=== PATIENT | female | born 1975 | race Caucasian/White ===

== ENCOUNTER 2018-11-16 13:10 | Outpatient (REF) | payer MEDICARE, MEDICAID, SELFPAY ==
[2018-11-17 12:34] LABS: HCT 42.7 % (36.0-46.0); HGB 14.1 g/dL (12.0-15.5); Mean Corpuscular Volume 90.9 fL (80-95); Mean Platelet Volume 13.6 fL (8.0-11.0); Platelet Count 150 x1000/uL (130-400); RBC Distribution Width 11.9 % (11.7-14.6); White Blood Cell Count 4.34 k/cumm (4.4-10.8)
[2018-11-17 13:02] LABS: ALT 24 U/L (12-78); AST 28 U/L (15-37); Alkaline Phosphatase 102 U/L (46-116); Anion Gap 8.2 mmol/L (3-11); BUN 25 mg/dL (7-18); Bilirubin, Total 0.8 mg/dL (0.2-1.0); CO2 30.8 mmol/L (21.0-32.0); CREATININE 0.82 mg/dL (0.55-1.02); Calcium 9.4 mg/dL (8.5-10.1); Chloride 103 mmol/L (98-107); Glucose 78 mg/dL (70-100); Sodium 142 mmol/L (136-145); TSH (W/Ref FT4) 1.54 uIU/mL (0.358-3.74); Total Protein 7.4 g/dL (6.4-8.2)
[2018-11-20 10:29] LABS: IgA 180 mg/dL (85-499); Interpretation SEE COMMENTS; Tissue Transglutaminase IgA <1.2 U/mL (<4.0)
== END 2018-11-16 13:30 ==
LOC: NCHCN 13:10
PROVIDERS: PCP Family Medicine; Visit Provider Family Medicine
DX: R10.31 Right lower quadrant pain (principal); R63.4 Abnormal weight loss
CPT/HCPCS: 80053; 82784; 83516; 85027; 84443

== ENCOUNTER → 2019-01-05 09:09 | Outpatient (BNVA) | payer MEDICARE, MEDICAID, SELFPAY | PROVIDERS: PCP Family Medicine; Referring Provider Family Medicine; Visit Provider Nurse Practitioner Adult Health | DX: G43.009 Migraine without aura, not intractable, without status migrainosus (principal) | CPT/HCPCS: 99204; 99215 ==

== ENCOUNTER 2020-06-01 12:19 | Outpatient (REF) | payer MEDICARE, MEDICAID, SELFPAY ==
[2020-06-01 16:25] LABS: Vitamin D 25 Total 19.9 ng/ml (30-100)
== END 2020-06-01 12:39 ==
LOC: NCHCN 12:19
PROVIDERS: PCP Family Medicine; Visit Provider Family Medicine
DX: E55.9 Vitamin D deficiency, unspecified (principal)
CPT/HCPCS: 82306

== ENCOUNTER 2021-12-10 18:58 | Outpatient (REF) | payer MEDICARE, MEDICAID, SELFPAY ==
[2021-12-10 16:28] LABS: Calculated LDL 125 mg/dL (<100); Cholesterol 189 mg/dL (<200); HDL Cholesterol 54 mg/dL (40-60); Magnesium 1.9 mg/dL (1.8-2.4); Triglyceride 51 mg/dL (<150)
[2021-12-10 16:42] LABS: Vitamin D 25 Total 18.2 ng/mL (30-100)
[2021-12-11 09:51] LABS: HIV-1/2 Ag & Ab Screen Negative (Negative)
[2021-12-11 10:15] LABS: Hepatitis C Ab w Rflx HCV PCR Negative (Negative)
== END 2021-12-10 18:59 | disposition home or self-care (01) ==
LOC: NCHCN 18:58
PROVIDERS: PCP Family Medicine; Visit Provider Family Medicine
DX: M81.0 Age-related osteoporosis without current pathological fracture (principal); E55.9 Vitamin D deficiency, unspecified; Z00.00 Encounter for general adult medical examination without abnormal findings; Z11.4 Encounter for screening for human immunodeficiency virus [HIV]; Z11.59 Encounter for screening for other viral diseases; Z13.220 Encounter for screening for lipoid disorders
CPT/HCPCS: 80061; 82306; 86803; 87389; 83735

== ENCOUNTER → 2022-02-11 08:44 | Outpatient (BNVA) | payer MEDICARE, MEDICAID, SELFPAY | PROVIDERS: PCP Family Medicine; Referring Provider Family Medicine; Visit Provider Nurse Practitioner Adult Health | DX: G43.901 Migraine, unspecified, not intractable, with status migrainosus (principal); G43.701 Chronic migraine without aura, not intractable, with status migrainosus | CPT/HCPCS: 99204; J1885; J2550; 96372 ==

== ENCOUNTER → 2022-02-18 14:59 | Outpatient (BNVA) | payer MEDICARE, MEDICAID, SELFPAY | PROVIDERS: PCP Family Medicine; Referring Provider Family Medicine; Visit Provider Nurse Practitioner Adult Health | DX: G43.701 Chronic migraine without aura, not intractable, with status migrainosus (principal) | CPT/HCPCS: 99211 ==

== ENCOUNTER → 2022-05-15 09:17 | Outpatient (BNVA) | payer MEDICARE, MEDICAID, SELFPAY | PROVIDERS: PCP Family Medicine; Referring Provider Family Medicine; Visit Provider Nurse Practitioner Adult Health | DX: G43.911 Migraine, unspecified, intractable, with status migrainosus (principal); R63.6 Underweight; F32.A Depression, unspecified | CPT/HCPCS: 99213; 99214 ==

== ENCOUNTER 2022-06-12 16:24 | Outpatient (REF) | payer MEDICARE, MEDICAID, SELFPAY ==
[2022-06-13 04:52] LABS: Vitamin D 25 Total 33.8 ng/mL (30-100)
== END 2022-06-12 16:25 | disposition home or self-care (01) ==
LOC: NCHCN 16:24
PROVIDERS: PCP Family Medicine; Visit Provider Family Medicine
DX: E55.9 Vitamin D deficiency, unspecified (principal)
CPT/HCPCS: 82306

== ENCOUNTER → 2022-08-28 08:48 | Outpatient (BNVA) | payer MEDICARE, MEDICAID, SELFPAY | PROVIDERS: PCP Family Medicine; Referring Provider Family Medicine; Visit Provider Nurse Practitioner Adult Health | DX: R51.9 Headache, unspecified (principal); G89.29 Other chronic pain; F41.9 Anxiety disorder, unspecified; G47.00 Insomnia, unspecified; Z87.820 Personal history of traumatic brain injury | CPT/HCPCS: 64405; 99213; 99214 ==

== ENCOUNTER 2023-06-18 09:33 | Outpatient (REF) | payer MEDICARE, MEDICAID, SELFPAY ==
--- OUTSIDE RECORDS SUMMARY | 2023-06-18 09:36 | XMS_ITS | Continuity of Care Document ---
Author Name Unknown Organization [facility] Address [address] [place] [address] Care Team Providers Care Line Assembler Name Role Phone KiloGibson [email or web address] [place] Primary Care Physician [facility] - 08/10/22 [facility] [address] [place] [address] Encounter Diagnosis Cough(Discharge Diagnosis) - 08/10/22 Discharge Disposition: Home or Self Care Attending Physician: Neel Stafford MD Admitting Physician: Neel Stafford MD Allergies, Adverse Reactions, Alerts Substance Reaction Severity Status codeine Vomiting Unknown Active morphine Urticaria Unknown Active Functional Status 08/10/22 Family Member Travel History No recent t ravel Recent Travel History No recent travel Other exposure to Infectious Disease Non e Immunizations Given and Recorded Vaccine Date Status Refusal Reason SARS-CoV-2 (COVID-19) mRNA-1273 vaccine 03/21/21 R ecorded SARS-CoV-2 (COVID-19) mRNA-1273 vaccine 02/21/21 R ecorded influenza virus vaccine, inactivated 11/03/00 Josh rded varicella virus vaccine 11/03/00 Recorded Medications benzonatate 100 mg oral capsule 100 mg = 1 cap, Oral, every 8 hr, PRN as needed for cough, 1 or 2 every 8 hours as needed for bothersome cough, # 30 cap, 1 Refill(s), Pharmacy: [facility] #[id number], 162, cm, 07/16/22 7:48:00 EDT, Height/Length Dosing, 45.36, kg, 07/16/22 7:48:00 EDT... Start Date: 07/16/22 Status: Ordered predniSONE 10 mg oral tablet 20 mg = 2 tab, Oral, Daily, # 10 tab, 0 Refill(s), Pharmacy: [facility] #[id number], 162, cm, 07/16/22 7:48:00 EDT, Height/Length Dosing, 45.36, kg, 07/16/22 7:48:00 EDT, Weight Dosing Start Date: 07/16/22 Status: Ordered Vitamin D3 Daily Start Date: 07/04/22 Status: Ordered Problem List Condition Confirmation Course Effective Dates Status Health St atus Informant Abdominal pain Confirmed 09/24/19 Active Anorexia nervosa Confirmed 09/24/19 Active Chest pain Confirmed 09/24/19 Active Cyst of Bartholin's gland duct Confirmed Active Depressive disorder Confirmed 09/24/19 Active Familial bicuspid aortic valve Confirmed 09/24/19 Active History of calculus of kidney Confirmed 09/24/19 Active Leukopenia Confirmed 09/24/19 Active Menopause Confirmed 09/24/19 Active Migraine Confirmed 09/24/19 Active Osteopenia Confirmed 09/24/19 Active Pain in right hip joint Confirmed Active Sciatica Confirmed 09/24/19 Active Vitamin D deficiency Confirmed 09/24/19 Active Weight loss Confirmed 09/24/19 Active Procedures Procedure Date Related Diagnosis Body Site Status Colonoscopy 05/16/21 Completed Gallbladder surgery 11/02/16 Compl eted EGD (esophagogastroduodenosc opy) gastric outlet reduction 1 06/25/16 Compl eted Tonsillectomy 11/02/03 Completed Hysterectomy 2 11/02/99 Completed Tubal ligation 11/02/96 Completed Carpal tunnel surgery 11/02/95 Com pleted Appendectomy 11/02/88 Completed 1epigastric pain; 2015 bowel reflux 2with BSO Vital Signs Most recent to oldest [Reference Range]: 1 Temperature Temporal Artery [36-38 Deg C ] 36.8 Deg C (08/10/22 5:27 AM) Peripheral Pulse Rate [60-100 bpm] 96 bp m (08/10/22 5:27 AM) Respiratory Rate [12-24 br/min] 16 br/mi n (08/10/22 5:27 AM) Blood Pressure [90-140/60-90 mmHg] 98/60 mmHg (08/10/22 5:27 AM) Weight Dosing 45.00 kg (08/10/22 5:42 AM) Weight Estimated 45.00 kg (08/10/22 5:27 AM) Height/Length Dosing 163.000 cm (08/10/22 5:42 AM) Height/Length Estimated 163.000 cm (08/10/22 5:27 AM) Social History Social History Type Response Tobacco Never tobacco user T obacco Use:. Sex Female Patient Care team information Personnel Name: Heather Boateng Address: Address: [facility] [address] [place] [address] [place] [address]- [place]
--- OUTSIDE RECORDS SUMMARY | 2023-06-18 09:36 | XMS_ITS | Continuity of Care Document ---
Author Name Unknown Organization [facility] Address [address] [place] [address] Care Team Providers Care Pressure Vessel Inspector Name Role Phone Kilo Heather Mesa Primary Care Physician [facility] Date(s[facility] 09/12/22 - 09/12/22 [facility] [address] [place] [address] Encounter Diagnosis Atypical chest pain(Discharge Diagnosis) - 09/12/22 Other chest pain(Final) - Discharge Disposition: Home or Self Care Attending Physician: Sheree Mcconnell MD Admitting Physician: Sheree Mcconnell MD Allergies, Adverse Reactions, Alerts Substance Reaction Severity Status codeine Vomiting Unknown Active morphine Urticaria Unknown Active Functional Status 09/12/22 Family Member Travel History No recent t [...] cough, # 30 cap, 1 Refill(s), Pharmacy: [facility], 162, cm, 07/16/22 7:48:00 EDT, Height/Length Dosing, 45.36, kg, 07/16/22 7:48:00 EDT... Start Date: 07/16/22 Status: Ordered Pepcid 20 mg oral tablet 20 mg = 1 tab, Oral, BID, # 60 tab, 11 Refill(s), Pharmacy: [facility], 164, cm, 09/12/2221:23:00 EST, Height/Length Dosing, 47.17, kg, 09/12/22 21:23:00 EST, Weight Dosing Start Date: 09/12/22 Status: Ordered predniSONE 10 mg oral tablet 20 mg = 2 tab, Oral, Daily, # 10 tab, 0 Refill(s), Pharmacy: [facility], 162, cm, 07/16/22 7:48:00 EDT, Height/Length [...] Com pleted Appendectomy 11/02/88 Completed 1epigastric pain; 2014 bowel reflux 2with BSO Results Laboratory List Name Date .Manual Differential (NCTY) 09/12/22 CBC w/ Diff 09/12/22 Comprehensive Metabolic Panel 09/12/22 Lipase Level 09/12/22 Troponin-I 09/12/22 Most recent to oldest [Reference Range]: 1 WBC [5.0-10.0 x10^3/mcL] 6.7 x10^3/mcL (09/12/22 9:53 PM) RBC [4.1-5.3 x10^6/mcL] 4.2 x10^6/mcL (09/12/22 9:53 PM) Segs Man [40-75 %] 49 % (09/12/22 9:53 PM) Lymph Man [20-50 %] 30 % (09/12/22 9:53 PM) [place] Man 8 % *NA* (09/12/22 9:53 PM) Eos Man 12 % *NA* (09/12/22 9:53 PM) BUN [7-18 mg/dL] 17 mg/dL (09/12/22 9:53 PM) Glucose Level [74-106 mg/dL] 105 mg/dL (09/12/22 9:53 PM) Potassium Level [3.5-5.1 mmol/L] 3.7 mmo l/L (09/12/22 9:53 PM) MCV [80.0-96.0] 91.0 (09/12/22 9:53 PM) RBC Morph Normal (09/12/22 9:53 PM) AST [15-37 unit/L] 36 unit/L (09/12/22 9:53 PM) ALT [14-59 unit/L] 33 unit/L (09/12/22 9:53 PM) MCHC [31.0-35.0 g/dL] 33.5 g/dL (09/12/22 9:53 PM) Troponin-I [0.0-51.4 pg/mL] 5.3 pg/mL (09/12/22 9:53 PM) Sodium Level [136-145 mmol/L] 141 mmol/L (09/12/22 9:53 PM) Hct [37.0-47.0 %] 38.2 % (09/12/22 9:53 PM) Lipase Level [16-77 unit/L] 29 unit/L (09/12/22 9:53 PM) Calcium Level [8.5-10.1 mg/dL] 8.7 mg/dL (09/12/22 9:53 PM) Albumin Level [3.4-5.0 g/dL] 3.6 g/dL (09/12/22:53 PM) Protein Total [6.4-8.2 g/dL] 7.4 g/dL (09/12/22 9:53 PM) MCH [26.0-32.0 pg] 30.5 pg (09/12/2253 PM) Bilirubin Total [0.2-1.0 mg/dL] 0.3 mg/d L (09/12/22:53 PM) Hgb [12.0-16.0 g/dL] 12.8 g/dL (09/12/22:53 PM) Alk Phos [46-146 unit/L] 118 unit/L (09/12/22:53 PM) Band Man [0-5 %] 0 % (09/12/22:53 PM) Platelets [130-450 x10^3/mcL] 163 x10^3/ mcL (09/12/22 9:53 PM) CO2 [21-32 mmol/L] 32 mmol/L (09/12/22 9:53 PM) eGFR Non-AA [>=60] 99 (09/12/22:53 PM) eGFR AA [>=60] 99 (09/12/22:53 PM) Chloride Level [98-107 mmol/L] 103 mmol/ L (09/12/22 9:53 PM) RDW-CV [11.7-17.0 %] 12.3 % (09/12/22:53 PM) Creatinine Level [0.55-1.02 mg/dL] 0.74 mg/dL (09/12/22:53 PM) Baso Man [0-1 %] 1 % (09/12/22:53 PM) Vital Signs Most recent to oldest [Reference Range]: 1 2 3 Temperature Temporal Artery [36-38 Deg C] 36.6 Deg C (09/12/22 9:14 PM) Peripheral Pulse Rate [60-100 bpm] 84 bpm (09/12/22 11:38 PM) 72 bpm (09/12/22 11:28 PM) 71 bpm (09/12/22 11:02 PM) Heart Rate Monitored [60-100 bpm] 72 bpm (09/12/22 11:28 PM) 71 bpm (09/12/22 11:02 PM) 81 bpm (09/12/22:42 PM) Respiratory Rate [12-24 br/min] 20 br/min (09/12/22 11:28 PM) 16 br/min (09/12/22 11:02 PM) 20 br/min (09/12/22:42 PM) Blood Pressure [90-140/60-90 mmHg] 130/62mmHg (09/12/22 11:38 PM) 117/63mmHg (09/12/22 11:28 PM) 117/55mmHg (09/12/22 11:02 PM) Weight Dosing 47.17 kg (09/12/22 9:23 PM) Weight Estimated 47.17 kg (09/12/22 9:14 PM) Height/Length Dosing 164.000 cm (09/12/22 9:23 PM) Height/Length Estimated 164.000 cm (09/12/22 9:14 PM) Social History Social History Type Response Tobacco Never tobacco user T obacco Use:. Sex Female Hospital Discharge Instructions Patient Education 09/12/2022 22:28:39 Nonspecific Chest Pain, Adult Nonspecific Chest Pain, Adult Chest pain is an uncomfortable, tight, or painful feeling in the chest. The pain can feel like a crushing, aching, or squeezing pressure. A person can feel a burning or tingling sensation. Chest paincan also be felt in your back, neck, jaw, shoulder, or arm. This pain can be worse when you move, sneeze, or take a deep breath. Chest pain can be caused by a condition that is life-threatening. This must be treated right away. It can also be caused by something that is not life- threatening. If you have chest pain, it can be hard to know the difference, so it is important to get help right away to make sure that you do not have a serious condition. Some life-threatening causes of chest pain include: ??? Heart attack. ??? A tear in the body's main blood vessel (aortic dissection). ??? Inflammation around your heart (pericarditis). ??? A problem in the lungs, such as a blood clot (pulmonary embolism) or a collapsed lung (pneumothorax). Some non life-threatening causes of chest pain include: ??? Heartburn. ??? Anxiety or stress. ??? Damage to the bones, muscles, and cartilage that make up your chest wall. ??? Pneumonia or bronchitis. ??? Shingles infection (varicella-zoster virus). Your chest pain may come and go. It may also be constant. Your health care provider will do tests and other studies to find the cause of your pain. Treatment will depend on the cause of your chest pain. Follow these instructions at home: Medicines ??? Take [id number] and prescription medicines only as told by your health care provider. ??? If you were prescribed an antibiotic medicine, take it as told by your health care provider. Donot stop taking the antibiotic even if you start to feel better. Activity ??? Avoid any activities that cause chest pain. ??? Do not lift anything that is heavier than 10 lb (4.5 kg), or the limit that you are told, untilyour health care provider says that it is safe. ??? Rest as directed by your health care provider. ??? Return to your normal activities only as told by your health care provider. Ask your health care provider what activities are safe for you. Lifestyle ??? Do not use any products that contain nicotine or tobacco, such as cigarettes, e-cigarettes, andchewing tobacco. If you need help quitting, ask your health care provider. ??? Do not drink alcohol. ??? Make healthy lifestyle changes as recommended. These may include: ??? Getting regular exercise. Ask your health care provider to suggest some exercises that are safefor you. ??? Eating a heart-healthy diet. This includes plenty of fresh fruits and vegetables, whole grains,low-fat (lean) protein, and low-fat dairy products. A dietitian can help you find healthy eating options. ??? Maintaining a healthy weight. ??? Managing any other health conditions you may have, such as high blood pressure (hypertension) or diabetes. ??? Reducing stress, such as with yoga or relaxation techniques. General instructions ??? Pay attention to any changes in your symptoms. ??? It is up to you to get the results of any tests that were done. Ask your health care provider, or the department that is doing the tests, when your results will be ready. ??? Keep all follow-up visits as told by your health care provider. This is important. ??? You may be asked to go for further testing if your chest pain does not go away. Contact a health care provider if: ??? Your chest pain does not go away. ??? You feel depressed. ??? You have a fever. ??? You notice changes in your symptoms or develop new symptoms. Get help right away if: ??? Your chest pain gets worse. ??? You have a cough that gets worse, or you cough up blood. ??? You have severe pain in your abdomen. ??? You faint. ??? You have sudden, unexplained chest discomfort. ??? You have sudden, unexplained discomfort in your arms, back, neck, or jaw. ??? You have shortness of breath at any time. ??? You suddenly start to sweat, or your skin gets clammy. ??? You feel nausea or you vomit. ??? You suddenly feel lightheaded or dizzy. ??? You have severe weakness, or unexplained weakness or fatigue. ??? Your heart begins to beat quickly, or it feels like it is skipping beats. These symptoms may represent a serious problem that is an emergency. Do not wait to see if the symptoms will go away. Get medical help right away. Call your local emergency services (911 in the [place] Do not drive yourself to the hospital. Summary ??? Chest pain can be caused by a condition that is serious and requires urgent treatment. It may also be caused by something that is not life-threatening. ??? Your health care provider may do lab tests and other studies to find the cause of your pain. ??? Follow your health care provider's instructions on taking medicines, making lifestyle changes, and getting emergency treatment if symptoms become worse. ??? Keep all follow-up visits as told by your health care provider. This includes visits for any further testing if your chest pain does not go away. This information is not intended to replace advice given to you by your health care provider. Make sure you discuss any questions you have with your health care provider. Document Revised: 01/03/2022 Document Reviewed: 01/03/2022 Elsevier Patient Education ?? 2022 [employer]. Follow Up Care 09/12/2022 21:14:02 With:Follow up with primary care provider Address: When:1 to 2 weeks Physician Emergency department Note * Sheree Mcconnell MD: PERFORM Event Display: ED Note Physician Authored Date: [id number] GLENN BURGESS :1975 Age:47 years Sex:Female Visit Date:09/12/2022 Primary Care Physician: Heather Boateng Basic Information Time Seen: Sheree Mcconnell MD / 09/12/2022 21:37 Chief Complaint chest pain - cental chest pain described as tight beginning suddenly while at rest. Had COVID 1 month ago. Reports abnormal echo 2 years ago with decreased EF. History Of Present Illness: Patient reports chest pain??abdominal pain epigastric starting around 7 PM??tonight she states she has had multiple episodes of this in the past??but tonight feels more severe. ??Patient reports 5 out of 10 currently??here in the emergency department. ??Patient declines any medications currently.??Patient's stated he tried??Pepcid??prior to arrival without significant relief.?? Patient??reports radiation to right arm??right back of neck however she is not sure if the right back of neck??is from??nerve block/migraine??issues??positive back discomfort??positive nausea??no diarrhea no extremity edema no skin rashes.?? Positive family history of??cardiac disease.?? Patient feels like??her Pepcid helped on the way here Review of Systems: see hpi for ros Physical Exam Vitals & Measurements T:??36.6?C ??(Temporal Artery)?? HR:??84??(Peripheral)?? RR:??20?? BP:??130/62?? SpO2:??99%?? HT:??164.000??cm?? WT:??47.17??kg??(Estimated)?? O2 Therapy:??Room air?? General: Alert and oriented, well nourished,?No??acute distress Eye: PER?Normal??conjunctiva,??No??scleral icterus HENT: Normocephalic,??nontraumatic??Normal hearing Lungs: Clear to auscultation,?Non-labored?? respiration Heart:?Normal?? rate,?Regular??rhythm,?No??murmur,?No??gallop,?No??edema Chest: wall excursion wnl no abnormal movements no obvious deformities Abdomen: Soft, moderate tenderness??epigastric, non-distended,?No??masses Musculoskeletal:?Normal?? range of motion and strength,?No??tenderness,?No??swelling Skin: Skin is warm, dry and pink,?No??rashes,?No??lesions Neurologic: Awake, alert and oriented X4 Psychiatric: Cooperative, appropriate mood and affect Medical Decision Making: For MDM please see under assessment and plan Procedure No Qualifying Data Assessment/Plan 1.??Atypical chest pain??R07.89 Patient declines a second??troponin??she does realize her risks and benefits??patient's is involved with the discussion,??patient is adamant about going home??a prescription for Pepcid 20 mg twice a day is sent to the pharmacy.?? Patient is aware if it anytime she worsens she is to return to the emergency department??or see primary care provider.?? I think likely??patient's chest pain is??gastric related??and hopefully the Pepcid 20 mg twice a day will be helpful for patient??however??patient reports that she has been on medications??previously in the past not sure that this may be helpful.?? Patient to follow-up with her primary care provider. Ordered: Pepcid 20 mg oral tablet, 20 mg = 1 tab, Oral, BID, # 60 tab, 11 Refill(s), Pharmacy: [facility], 164, cm, 09/12/22 21:23:00 EST, Height/Length Dosing, 47.17, kg, 09/12/22 21:23:00 EST, Weight Dosing Discharge Patient, 09/12/22 23:25:00 EST, Home Independently, Constant Indicator ?? Patient Education Nonspecific Chest Pain, Adult Follow Up With When Contact Information Follow up with primary care provider Within 1 to 2 weeks Additional Instructions: Medication Reconciliation New Prescription famotidine (Pepcid 20 mg oral tablet)1 tab Oral (given by mouth) 2 times a day. Refills: 11. ?? Unchanged benzonatate (benzonatate 100 mg oral capsule)1 Capsules Oral (given by mouth) every 8 hours as needed as needed for cough. 1 or 2 every 8 hours as needed for bothersome cough. Refills: 1. ?? cholecalciferol (Vitamin D3)every day. ?? predniSONE (predniSONE 10 mg oral tablet)2 tab Oral (given by mouth) every day. Refills: 0. Problem List/Past Medical History Ongoing Abdominal pain Anorexia nervosa Chest pain Cyst of Bartholin's gland duct Depressive disorder Familial bicuspid aortic valve History of calculus of kidney Leukopenia Menopause Migraine Osteopenia Pain in right hip joint Sciatica Vitamin D deficiency Weight loss Historical No qualifying data Procedure/Surgical History ???Colonoscopy (05/17/2021)???Gallbladder surgery (11/03/2016)???EGD (esophagogastroduodenoscopy) gastric outlet reduction (06/26/2016)???Tonsillectomy (11/03/2003)???Hysterectomy (11/03/1999)???Tubal ligation (11/03/1996)???Carpal tunnel surgery (11/03/1995)???Appendectomy (11/03/1988) Medication Administration Given !-Maalox Advanced Regular Strength oral suspension, 30 mL, Oral Allergies codeine??(Vomiting) morphine??(Urticaria) Social History Alcohol Never Electronic Cigarette/Vaping Electronic Cigarette Use: Never. Tobacco Never tobacco user Tobacco Use:. Family History Carcinoma of prostate: Father. Heart disease: Father. Hypertensive disorder: Mother and Father. Polyp of colon: Father. Lab Results CBC and Differential?? LATEST RESULTS?? HISTORICAL RESULTS?? WBC?? 09/12/22 21:53?? 6.7?? 07/16/22?? 5.0?? RBC?? 09/12/22 21:53?? 4.2?? 07/16/22?? 4.4?? Hgb?? 09/12/22 21:53?? 12.8?? 07/16/22?? 13.5?? Hct?? 09/12/22 21:53?? 38.2?? 07/16/22?? 39.6?? MCV?? 09/12/22 21:53?? 91.0?? 07/16/22?? 90.4?? MCH?? 09/12/22 21:53?? 30.5?? 07/16/22?? 30.8?? MCHC?? 09/12/22 21:53?? 33.5?? 07/16/22?? 34.1?? RDW-CV?? 09/12/22 21:53?? 12.3?? 07/16/22?? 11.4 ??Low?? Platelets?? 09/12/22 21:53?? 163?? 07/16/22?? 175?? Segs Man?? 09/12/22 21:53?? 49?? 07/16/22?? 56?? Lymph Man?? 09/12/22 21:53?? 30?? 07/16/22?? 28?? [place] Man?? 09/12/22 21:53?? 8?? 07/16/22?? 3?? Eos Man?? 09/12/22 21:53?? 12?? 07/16/22?? 6?? Baso Man?? 09/12/22 21:53?? 1?? 07/16/22?? 1?? Band Man?? 09/12/22 21:53?? 0?? 07/16/22?? 3?? RBC Morph?? 09/12/22 21:53?? Normal?? 07/16/22?? Normal? Routine Chemistry?? LATEST RESULTS?? HISTORICAL RESULTS?? Sodium Level?? 09/12/22 21:53?? 141?? 07/16/22?? 138?? Potassium Level?? 09/12/22 21:53?? 3.7?? 07/16/22?? 4.3?? Chloride Level?? 09/12/22 21:53?? 103?? 07/16/22?? 102?? CO2?? 09/12/22 21:53?? 32?? 07/16/22?? 30?? Alk Phos?? 09/12/22 21:53?? 118?? 07/16/22?? 99?? AST?? 09/12/22 21:53?? 36?? 07/16/22?? 22?? ALT?? 09/12/22 21:53?? 33?? 07/16/22?? 25?? BUN?? 09/12/22 21:53?? 17?? 07/16/22?? 23 ??High?? Glucose Level?? 09/12/22 21:53?? 105?? 07/16/22?? 91?? Creatinine Level?? 09/12/22 21:53?? 0.74?? 07/16/22?? 0.79?? eGFR AA?? 09/12/22 21:53?? 99?? 07/16/22?? 92?? eGFR Non-AA?? 09/12/22 21:53?? 99?? 07/16/22?? 92?? Calcium Level?? 09/12/22 21:53?? 8.7?? 07/16/22?? 8.9?? Protein Total?? 09/12/22 21:53?? 7.4?? 07/16/22?? 7.4?? Albumin Level?? 09/12/22 21:53?? 3.6?? 07/16/22?? 3.5?? Bilirubin Total?? 09/12/22 21:53?? 0.3?? 07/16/22?? 0.5?? Lipase Level?? 09/12/22 21:53?? 29? Cardiac Isoenzymes?? LATEST RESULTS?? Troponin-I?? 09/12/22 21:53?? 5.3? Electronically Signed on 09/13/22 12:43 AM [place], Sheree MD Emergency department Discharge instructions * Sheree Mcconnell MD: PERFORM Event Display: ED Discharge Information Authored Date: [id number] GLENN BURGESS :1975 Age:47 years Sex:Female Visit Date:09/12/2022 Primary Care Physician: Heather Boateng Discharge Instructions We would like to thank you for allowing us to assist you with your healthcare needs. The following includes patient education materials and information regarding your injury/illness. Diagnosis from Today's Visit Atypical chest pain Discharge Vitals Temperature??(Temporal Artery) 97.9 ??F (36.6 ??C) Heart Rate??(Peripheral) 72 Heart Rate??(Monitored) 72 Respiratory Rate?? 20 Blood Pressure?? 117/63?? Height?? 64.57 in (164.000 cm) Weight??(Estimated) 104.01 lb (47.17 kg) Allergies codeine??(Vomiting) morphine??(Urticaria) What to Do Next Instructions from Your Care Team If you worsen return to the emergency department or see your primary care provider. You Need to Schedule the Following Appointments Follow Up with??Follow up with primary care provider When:??Within 1 to 2 weeks You were treated today on an emergency basis; it may be samuels to contact your primary care provider to notify them of your visit today. You may have been referred to your regular doctor or a specialist, please follow up as instructed. If your condition worsens or you can't get in to see the doctor, contact the Emergency Department. Medications What How Much When Why Instructions Next Dose New famotidine (Pepcid 20 mg oral tablet) 1 tab Oral (given by mouth) 2 times a day Atypical chest pain Refills: 11 Pickup at [facility] Unchanged benzonatate (benzonatate 100 mg oral capsule) 1 Capsules Oral (given by mouth) Every 8 hours as needed for as needed for cough 1 or 2 every 8 hours as needed for bothersome cough ?? Unchanged cholecalciferol (Vitamin D3) Every day Unchanged predniSONE (predniSONE 10 mg oral tablet) 2 tab Oral (given by mouth) Every day Pharmacy Information [facility]: [address], [place] [phone] [phone] Education Materials Nonspecific Chest Pain, Adult Chest pain is an uncomfortable, tight, or painful feeling in the chest. The pain can feel like a crushing, aching, or squeezing pressure. A person can feel a burning or tingling sensation. Chest paincan also be felt in your back, neck, jaw, shoulder, or arm. This pain can be worse when you move, sneeze, or take a deep breath. Chest pain can be caused by a condition that is life-threatening. This must be treated right away. It can also be caused by something that is not life- threatening. If you have chest pain, it can be hard to know the difference, so it is important to get help right away to make sure that you do not have a serious condition. Some life-threatening causes of chest pain include: ? Heart attack. ? A tear in the body's main blood vessel (aortic dissection). ? Inflammation around your heart (pericarditis). ? A problem in the lungs, such as a blood clot (pulmonary embolism) or a collapsed lung (pneumothorax). Some non life-threatening causes of chest pain include: ? Heartburn. ? Anxiety or stress. ? Damage to the bones, muscles, and cartilage that make up your chest wall. ? Pneumonia or bronchitis. ? Shingles infection (varicella-zoster virus). Your chest pain may come and go. It may also be constant. Your health care provider will do tests and other studies to find the cause of your pain. Treatment will depend on the cause of your chest pain. Follow these instructions at home: Medicines ? Take [id number] and prescription medicines only as told by your health care provider. ? If you were prescribed an antibiotic medicine, take it as told by your health care provider. Do notstop taking the antibiotic even if you start to feel better. Activity ? Avoid any activities that cause chest pain. ? Do not lift anything that is heavier than 10 lb (4.5 kg), or the limit that you are told, until your health care provider says that it is safe. ? Rest as directed by your health care provider. ? Return to your normal activities only as told by your health care provider. Ask your health care provider what activities are safe for you. Lifestyle ? Do not use any products that contain nicotine or tobacco, such as cigarettes, e- cigarettes, and chewing tobacco. If you need help quitting, ask your health care provider. ? Do not drink alcohol. ? Make healthy lifestyle changes as recommended. These may include: ? Getting regular exercise. Ask your health care provider to suggest some exercises that are safe foryou. ? Eating a heart-healthy diet. This includes plenty of fresh fruits and vegetables, whole grains, low-fat (lean) protein, and low-fat dairy products. A dietitian can help you find healthy eating options. ? Maintaining a healthy weight. ? Managing any other health conditions you may have, such as high blood pressure (hypertension) or diabetes. ? Reducing stress, such as with yoga or relaxation techniques. General instructions ? Pay attention to any changes in your symptoms. ? It is up to you to get the results of any tests that were done. Ask your health care provider, or the department that is doing the tests, when your results will be ready. ? Keep all follow-up visits as told by your health care provider. This is important. ? You may be asked to go for further testing if your chest pain does not go away. Contact a health care provider if: ? Your chest pain does not go away. ? You feel depressed. ? You have a fever. ? You notice changes in your symptoms or develop new symptoms. Get help right away if: ? Your chest pain gets worse. ? You have a cough that gets worse, or you cough up blood. ? You have severe pain in your abdomen. ? You faint. ? You have sudden, unexplained chest discomfort. ? You have sudden, unexplained discomfort in your arms, back, neck, or jaw. ? You have shortness of breath at any time. ? You suddenly start to sweat, or your skin gets clammy. ? You feel nausea or you vomit. ? You suddenly feel lightheaded or dizzy. ? You have severe weakness, or unexplained weakness or fatigue. ? Your heart begins to beat quickly, or it feels like it is skipping beats. These symptoms may represent a serious problem that is an emergency. Do not wait to see if the symptoms will go away. Get medical help right away. Call your local emergency services (911 in the [place] Do not drive yourself to the hospital. Summary ? Chest pain can be caused by a condition that is serious and requires urgent treatment. It may also be caused by something that is not life-threatening. ? Your health care provider may do lab tests and other studies to find the cause of your pain. ? Follow your health care provider's instructions on taking medicines, making lifestyle changes, and getting emergency treatment if symptoms become worse. ? Keep all follow-up visits as told by your health care provider. This includes visits for any further testing if your chest pain does not go away. This information is not intended to replace advice given to you by your health care provider. Make sure you discuss any questions you have with your health care provider. Document Revised: 01/03/2022 Document Reviewed: 01/03/2022 [employer] Patient Education ?? 2021 [employer] Tests Performed Medications and Immunizations Administered Given !-Maalox Advanced Regular Strength oral suspension, 30 mL, Oral Lab Test Name Test Result Date/Time WBC 6.7 x10^3/mcL 09/12/2022 21:53 EST RBC 4.2 x10^6/mcL 09/12/2022 21:53 EST Hgb 12.8 g/dL 09/12/2022 21:53 EST Hct 38.2 % 09/12/2022 21:53 EST MCV 91.0 09/12/2022 21:53 EST MCH 30.5 pg 09/12/2022 21:53 EST MCHC 33.5 g/dL 09/12/2022 21:53 EST RDW-CV 12.3 % 09/12/2022 21:53 EST Platelets 163 x10^3/mcL 09/12/2022 21:53 EST Segs Man 49 % 09/12/2022 21:53 EST Lymph Man 30 % 09/12/2022 21:53 EST [place] Man 8 % 09/12/2022 21:53 EST Eos Man 12 % 09/12/2022 21:53 EST Baso Man 1 % 09/12/2022 21:53 EST Band Man 0 % 09/12/2022 21:53 EST RBC Morph Normal 09/12/2022 21:53 EST Sodium Level 141 mmol/L 09/12/2022 21:53 EST Potassium Level 3.7 mmol/L 09/12/2022 21:53 EST Chloride Level 103 mmol/L 09/12/2022 21:53 EST CO2 32 mmol/L 09/12/2022 21:53 EST Alk Phos 118 unit/L 09/12/2022 21:53 EST AST 36 unit/L 09/12/2022 21:53 EST ALT 33 unit/L 09/12/2022 21:53 EST BUN 17 mg/dL 09/12/2022 21:53 EST Glucose Level 105 mg/dL 09/12/2022 21:53 EST Creatinine Level 0.74 mg/dL 09/12/2022 21:53 EST eGFR AA 99 09/12/2022 21:53 EST eGFR Non-AA 99 09/12/2022 21:53 EST Calcium Level 8.7 mg/dL 09/12/2022 21:53 EST Protein Total 7.4 g/dL 09/12/2022 21:53 EST Albumin Level 3.6 g/dL 09/12/2022 21:53 EST Bilirubin Total 0.3 mg/dL 09/12/2022 21:53 EST Lipase Level 29 unit/L 09/12/2022 21:53 EST Troponin-I 5.3 pg/mL 09/12/2022 21:53 EST Patient/Beamster Signature Patient Name:GLENN BURGESS I have received this information and my questions have been answered. Patient/Beamster Name: Patient/Beamster Signature: Relationship to Patient: Witness Name/Signature: Date: Electronically Signed on: 09/12/2022 23:30 ESTSigned by: Emergency department Note * Halina Reyes: PERFORM Event Display: ED Notes Authored Date: [id number] Patient Care team information Care Team Personnel Name: Heather Boateng Position: No Access Member Role: Primary Care Physician Address: Address: [address] [id number] Name: Gemma Tavares RN Position: Nurse Member Role: ED Nurse Name: Sheree Mcconnell MD Position: Physician Member Role: Attending Physician Address: Address: [address] [place] [id number] Care Team Related Persons Name: SHAQ BURGESS Address: Home Name: OKSANA BURGESS Address: Home
[2023-06-18 15:48] LABS: HCT 40.6 % (36.0-46.0); HGB 13.6 g/dL (11.2-15.7); MCH 29.7 pg (27.0-33.0); MCHC 33.5 % (32.0-36.0); MCV 89 fL (80-95); RBC 4.58 10^6/uL (3.93-5.22); RDW 11.6 % (11.7-14.6); RDW-SD 37.5 fL; WBC 3.34 10^3/uL (4.4-10.8)
[2023-06-18 16:41] LABS: ALT 22 U/L (14-59); AST 26 U/L (15-37); Albumin 4.2 g/dL (3.4-5.0); Alkaline Phosphatase 95 U/L (46-116); BUN 29 mg/dL (7-18); CREATININE 0.7 mg/dL (0.55-1.02); Chloride 104 mmol/L (98-107); Estimated GFR 105.95 (mL/min/1.73m2); Glucose 77 mg/dL (74-106); Potassium 4.1 mmol/L (3.5-5.1); Sodium 142 mmol/L (136-145); Total Protein 7.5 g/dL (6.4-8.2)
[2023-06-18 17:47] LABS: Vitamin D 25 Total 27.4 ng/mL (30-100)
== END 2023-06-18 09:34 | disposition home or self-care (01) ==
LOC: NCHCN 09:33
PROVIDERS: PCP Family Medicine; Visit Provider Family Medicine
DX: R63.4 Abnormal weight loss (principal); E55.9 Vitamin D deficiency, unspecified; M81.0 Age-related osteoporosis without current pathological fracture
CPT/HCPCS: 80053; 82306; 85027

== ENCOUNTER 2025-04-27 09:47 | Outpatient (REF) | payer MEDICARE, MEDICAID, SELFPAY ==
[2025-04-27 16:42] LABS: ALT 31 U/L (14-59); AST 26 U/L (15-37); Albumin 4.1 g/dL (3.4-5.0); Alkaline Phosphatase 103 U/L (46-116); Anion Gap 7.5 mmol/L (3-11); BUN 18 mg/dL (7-18); Bilirubin, Total 0.6 mg/dL (0.2-1.0); CO2 29.5 mmol/L (21.0-32.0); CREATININE 0.9 mg/dL (0.55-1.02); Calcium 9.1 mg/dL (8.5-10.1); Chloride 103 mmol/L (98-107); Glucose 88 mg/dL (74-106); Potassium 4.6 mmol/L (3.5-5.1); Sodium 140 mmol/L (136-145); TSH (W/Ref FT4) 1.62 uIU/mL (0.36-3.74); Total Protein 7.6 g/dL (6.4-8.2); Vitamin D 25 Total 37 ng/mL (30-100)
[2025-04-27 23:09] LABS: Parathyroid Hormone,Intact 46 pg/mL (19-88)
[2025-04-28 10:57] LABS: IgA 190 mg/dL (85-499); Interpretation (See Note); Tissue Transglutaminase IgA <4.0 CU (<20.0)
== END 2025-04-27 09:48 | disposition home or self-care (01) ==
LOC: NCHCN 09:47
PROVIDERS: PCP Family Medicine; Visit Provider Family Medicine
DX: M81.0 Age-related osteoporosis without current pathological fracture (principal); R63.6 Underweight; Z68.1 Body mass index [BMI] 19.9 or less, adult
CPT/HCPCS: 80053; 82306; 82784; 83516; 83970; 84443